=== PATIENT | female | born 1990 | race Caucasian/White ===

== ENCOUNTER 2021-01-26 20:18 | Inpatient (IN) | payer MEDICAID ==
[~2021-01-26 20:18] MED LIST: BUPIVACAINE 0.25% PF 10 ML VIAL ONE; ROPIVACAINE 0.2% 0 MG/0 ML BAG EP ONE; fentaNYL 100 MCG/2 ML VIAL ONE
[2021-01-26] MEDS ORDERED: TRANEXAMIC ACID IN NACL 1,000 MG/100 ML BAG IV PRN (20:38)
[2021-01-26] MEDS ORDERED: LIDOCAINE-MPF 1% 30 ML VIAL ID PRN (20:38)
[2021-01-26] MEDS ORDERED: METHYLERGONOVINE 0.2 MG/ML VIAL IM PRN (20:38)
[2021-01-26] MEDS ORDERED: SODIUM CHLORIDE FLUSH 0.9% 10 ML SYRINGE IVP PRN (20:38)
[2021-01-26] MEDS ORDERED: miSOPROStoL 200 MCG TABLET BC PRN (20:38)
[2021-01-26] MEDS ORDERED: OXYTOCIN 10 UNIT/ML VIAL IM PRN (20:38)
[2021-01-26] MEDS ORDERED: OXYTOCIN/SODIUM CHLORIDE 500 ML IV PRN (20:38)
[2021-01-26] MEDS ORDERED: CARBOPROST TROMETHAMINE 250 MCG/ML AMP IM PRN (20:38)
[2021-01-26 20:50] LABS: BASOPHILS % (AUTO) 0.2 %; HCT - HEMATOCRIT 37.5 % (37.0-47.0); HGB - HEMOGLOBIN 13.1 g/dL (12.0-16.0); MEAN CORPUSCULAR HEMOGLOBIN 32.7 pg (27.0-31.0); MEAN CORPUSCULAR HGB CONC 34.9 g/dL (32.0-36.0); MEAN CORPUSCULAR VOLUME 93.5 fL (81.0-99.0); MEAN PLATELET VOLUME 9.3 fL (7.9-10.8); MONOCYTES % (AUTO) 2.7 %; NEUTROPHILS % (AUTO) 93.2 %; PLT - PLATELET COUNT 303 10^3/uL (130-450); RED BLOOD COUNT 4.01 10^6/uL (4.20-5.40); RED CELL DISTRIBUTION WIDTH 12.8 % (12.0-15.0); WHITE BLOOD COUNT 22.3 x10^3/uL (4.8-10.8)
[2021-01-26] MEDS ORDERED: LIDOCAINE-MPF 1% 30 ML VIAL ONE (20:55)
[2021-01-26 20:56] LABS: ABNORMAL LYMPHS % (MANUAL) 0 %
[2021-01-26] MEDS ORDERED: LIDOCAINE 2%-EPI 1:100000 20 ML MDV ONE (20:56)
[2021-01-26] MEDS ORDERED: LACTATED RINGERS 1,000 ML IV SCH ×2 (21:00→23:00)
[2021-01-26 21:13] LABS: BAND NEUTROPHILS % (MANUAL) 3 %; LYMPHOCYTES # (MANUAL) 0.2 10^3/uL (1.5-3.5); LYMPHOCYTES % (MANUAL) 1 %; MONOCYTES # (MANUAL) 0.4 10^3/uL (0.0-1.0); NEUTROPHILS # (MANUAL) 21.6 10^3/uL (1.5-6.6); PLATELET ESTIMATE, MANUAL NORMAL (130-450,000) (NORMAL); PLATELET MORPHOLOGY NORMAL APPEARANCE (NORMAL); RBC MORPHOLOGY (MULTIPLE) NORMAL APPEARANCE (NORMAL); WBC MORPHOLOGY (MULTIPLE) NORMAL APPEARANCE (NORMAL)
[2021-01-26 21:14] LABS: DIFFERENTIAL COMMENT MANUAL DIFFERENTIAL
[2021-01-26] MEDS ORDERED: DEXTROSE 5%-LACTATED RINGERS 1,000 ML IV SCH (22:00)
[2021-01-26] MEDS ORDERED: OXYTOCIN/SODIUM CHLORIDE 500 ML IV SCH (22:00)
[2021-01-26] MEDS ORDERED: ONDANSETRON 4 MG/2 ML VIAL IVP PRN (22:50)
[2021-01-26] MEDS ORDERED: diphenhydrAMINE 25 MG CAPSULE PO PRN (22:50)
[2021-01-26] MEDS ORDERED: WITCH HAZEL/GLYCERIN 1 PAD TOP PRN (22:50)
[2021-01-26] MEDS ORDERED: oxyCODONE 5 MG TABLET PO PRN (22:50)
[2021-01-26] MEDS: ACETAMINOPHEN 500 MG TABLET PO SCH (23:14)
--- NOTE | 2021-01-26 23:23 | DELIVERY NOTE ---
Delivery Note - Labor Labor: positive: Spontaneous - Delivery Method Delivery Method: positive: Vacuum assist - Presentation Presentation: positive: Vertex, Compound (LEFT HAND), OA - occiput anterior - Nuchal Cord Nuchal Cord: positive: None - Anesthetic Anesthetic Type: Anesthetic: positive: Lidocaine - 1% plain Volume: positive: Other (30 ml) - Amniotic Fluid Description Amniotic Fluid Description: positive: Light meconium - Vacuum Use Indication for Vacuum Use: positive: Shortening of 2nd stage for maternal benefit Type of Vacuum Cup: positive: Cup: Leon Type, Cup: Rigid Number of pop-offs: 0 - Episiotomy Type Episiotomy Type: positive: None - Laceration Laceration: positive: 2nd degree, Labial (right anterior Lefl posterior), Perineal, Vaginal (right) - Suture Suture Type: positive: Vicryl Suture Size: positive: 3-0 - Delivery Outcome Delivery Outcome: positive: Livebirth - : positive: Placed in direct skin contact with mother, Bulb syringe, Stimulated sex: positive: Female - Cord Cord: positive: 3 vessels - Placenta Placenta: positive: Intact - Estimated Blood Loss Estimated Blood Loss (in cc): 450 - Post Delivery Events Post Delivery Events: positive: No post delivery events - Delivery Comments (Free Text/Narrative) Delivery Comments (Free Text/Narrative): Pt presented C/C/+2-3Pt had reached complete at 1600 While at home. Because of maternal exhaustion She was transferred. Reviewed options with the Pt and spouse decided to continue with pushing. A vacuum was placed and pulled with 2 contractions and delivered the head and body at 2200. nose and mouth suctioned and the vigorous baby was placed on the maternal abdomen. Cord clamped following sesation of pulsation. At time of delivery the left hand was compound. Placenta followed soon after and was noted to be complete. She had for lacerations. left vaginal, right anterior labial, left posterior labial and a second degree perioneal. All were repaired with 3-0 vicril. EBL 450 ml.
--- NOTE | 2021-01-26 23:49 | HISTORY & PHYSICAL EXAMINATION ---
DATE OF SERVICE: 01/26/2021 Physician: Dre Azul MD IDENTIFICATION: Patient is a 31-year-old, G1, P0 female whose EDC was determined to be 02/01/2021 by LMP. This makes her 39 weeks and 1 day. CHIEF COMPLAINT: Maternal exhaustion. HISTORY OF PRESENT ILLNESS: Patient this morning started with labor. She reached complete at roughly 4 o'clock. She had her membranes ruptured at 2 o'clock. She had difficulty with urges to push and was having maternal exhaustion. I received a phone call from Doris Ralph [facility], at roughly 1929 hours, stating that she had been complete and that she was unable to deliver vaginally. For this reason, she was transferred to our hospital here. She arrived here at roughly 2013 hours. She at that point was examined, and her cervix was noted to be complete and she was roughly +2 to +3. She had infrequent contractions at that time and was not pushing effectively. OB HISTORY: The patient started her OB care at 14 weeks and 5 days. She was seen by both Mely Leone, as well as Doris Ralph throughout her . This appeared to be unremarkable, with the exception that she did not receive a 50 gram Glucola but had DEXA sticks, she states were less than 90, and her random blood sugar was 108. She also received a hemoglobin A1c, which was noted to be 5.2. Additionally, she had a CBC that showed her blood type to be A positive. She was noted to be rubella immune. Her antibody screen was negative. She tested negative for hepatitis B, GC, chlamydia. She does have a history of having had both oral, as well as genital herpes; last outbreak was in 2013. Her OB course had an ultrasound at 20 weeks, which showed an who was suspected to be 20th percentile. PAST MEDICAL HISTORY: None. SURGICAL HISTORY: None. ALLERGIES: NONE KNOWN. CURRENT MEDICATIONS: vitamins. HABITS: The patient denies use of alcohol, tobacco, or street or addictive drugs. SOCIAL HISTORY: The patient is currently and lives with spouse. PHYSICAL EXAM GENERAL: Well-developed, well-nourished white female with intermittent contractions, which appear to be painful. HEENT: Pupils equal, round. Extraocular muscles are intact. Thyroid is not palpably enlarged. HEART: Regular rate and rhythm without murmurs. LUNGS: Lung sullivan are clear without rales or wheezes. ABDOMEN: Gravid, nontender. PELVIC: Examination shows a cervix to be completely dilated, completely effaced, and the to be stationed at +2 to +3. The infant was felt to be occiput anterior. IMPRESSION: A 31-year-old primigravida at 39 weeks and 1 day with maternal exhaustion. PLAN: Patient being admitted, and at which time discussed the options with the patient. These ranged from Pitocin, vacuum, forceps, as well as . The importance of having both a healthy mother and baby were emphasized at this time. Because of the infrequency of contractions, Pitocin was initiated at roughly 2 units. TD: 01/26/2021 23:47 betsy OWENS
[2021-01-27] MEDS: IBUPROFEN 600 MG TABLET PO SCH ×4 (00:32→18:28)
[2021-01-27] MEDS ORDERED: SODIUM CHLORIDE FLUSH 0.9% 10 ML SYRINGE IVP SCH (01:00)
[2021-01-27 05:27] LABS: BASOPHILS % (AUTO) 0.1 %; HCT - HEMATOCRIT 33.6 % (37.0-47.0); HGB - HEMOGLOBIN 11.7 g/dL (12.0-16.0); LYMPHOCYTES # (AUTO) 1.3 10^3/uL (1.5-3.5); LYMPHOCYTES % (AUTO) 6.4 %; MEAN CORPUSCULAR HEMOGLOBIN 33.3 pg (27.0-31.0); MEAN CORPUSCULAR HGB CONC 34.8 g/dL (32.0-36.0); MEAN CORPUSCULAR VOLUME 95.7 fL (81.0-99.0); MEAN PLATELET VOLUME 9.4 fL (7.9-10.8); MONOCYTES # (AUTO) 1.4 10^3/uL (0.0-1.0); MONOCYTES % (AUTO) 6.8 %; NEUTROPHILS # (AUTO) 17.2 10^3/uL (1.5-6.6); NEUTROPHILS % (AUTO) 85.9 %; PLT - PLATELET COUNT 281 10^3/uL (130-450); RED BLOOD COUNT 3.51 10^6/uL (4.20-5.40); RED CELL DISTRIBUTION WIDTH 12.9 % (12.0-15.0)
[2021-01-27 05:45] LABS: PLATELET ESTIMATE, MANUAL NORMAL (130-450,000) (NORMAL); PLATELET MORPHOLOGY NORMAL APPEARANCE (NORMAL); RBC MORPHOLOGY (MULTIPLE) NORMAL APPEARANCE (NORMAL); WBC MORPHOLOGY (MULTIPLE) NORMAL APPEARANCE (NORMAL)
[2021-01-27] MEDS: ACETAMINOPHEN 500 MG TABLET PO SCH ×2 (08:10→16:14)
[2021-01-27] MEDS: HYDROCORTISONE 1% CREAM 28 GM TUBE TOP SCH (08:31)
[2021-01-28] MEDS: IBUPROFEN 600 MG TABLET PO SCH ×2 (01:42→08:30)
[2021-01-28] MEDS: ACETAMINOPHEN 500 MG TABLET PO SCH ×2 (01:43→10:07)
[2021-01-28] MEDS: HYDROCORTISONE 1% CREAM 28 GM TUBE TOP SCH ×2 (07:23→09:31)
[2021-01-28 08:28] VITALS: BP 110/67
[2021-01-28 09:00] LABS: BASOPHILS % (AUTO) 0.3 %; EOSINOPHILS % (AUTO) 0.3 %; HCT - HEMATOCRIT 36.3 % (37.0-47.0); HGB - HEMOGLOBIN 12.1 g/dL (12.0-16.0); LYMPHOCYTES # (AUTO) 1.7 10^3/uL (1.5-3.5); LYMPHOCYTES % (AUTO) 14.1 %; MEAN CORPUSCULAR HEMOGLOBIN 32.7 pg (27.0-31.0); MEAN CORPUSCULAR HGB CONC 33.3 g/dL (32.0-36.0); MEAN CORPUSCULAR VOLUME 98.1 fL (81.0-99.0); MEAN PLATELET VOLUME 9.3 fL (7.9-10.8); MONOCYTES # (AUTO) 0.6 10^3/uL (0.0-1.0); MONOCYTES % (AUTO) 4.8 %; NEUTROPHILS # (AUTO) 9.4 10^3/uL (1.5-6.6); NEUTROPHILS % (AUTO) 79.5 %; PLT - PLATELET COUNT 271 10^3/uL (130-450); RED CELL DISTRIBUTION WIDTH 13.5 % (12.0-15.0); WHITE BLOOD COUNT 11.8 x10^3/uL (4.8-10.8)
--- NOTE | 2021-01-28 09:10 | PROVIDER PROGRESS NOTE ---
Subjective - Prog Note Date Prog Note Date: 01/28/21 Prog Note Time: 09:08 - Subjective Pt reports feeling: Improved (Pain 10/19. breast milk not in yet. Pt desires to go home.) Objective - Vital Signs/Intake & Output Reviewed Vital Signs: Yes Vital Signs: Vital Signs x48h Temp Pulse Resp BP Pulse Ox 01/28/21 08:26 36.8 C 64 18 110/67 99 01/28/21 02:07 36.5 C 65 18 113/69 Intake & Output: Intake & Output 01/25/21 01/26/21 01/27/21 01/28/21 23:59 23:59 23:59 23:59 Intake Total 0981.293 8900 Output Total 1 1752 Balance 1022.000 -237 - Objective General Appearance: positive: No acute distress, Alert Abdomen: positive: Non-tender, No distention, Mass (U-2) Extremities: negative: Calf tenderness, Mamadou's sign/cords - Lab Results Fish Bones: 01/28/21 08:50 Other Labs: Lab Results x24hrs 01/28/21 01/27/21 Range/Units 08:50 05:15 WBC 11.8 H (4.8-10.8) x10^3/uL RBC 3.70 L (4.20-5.40) 10^6/uL Hgb 12.1 (12.0-16.0) g/dL Hct 36.3 L (37.0-47.0) % MCV 98.1 (81.0-99.0) fL MCH 32.7 H (27.0-31.0) pg MCHC 33.3 (32.0-36.0) g/dL RDW 13.5 (12.0-15.0) % Plt Count 271 (130-450) 10^3/uL MPV 9.3 (7.9-10.8) fL Neut # (Auto) 9.4 H (1.5-6.6) 10^3/uL Lymph # (Auto) 1.7 (1.5-3.5) 10^3/uL [place] # (Auto) 0.6 (0.0-1.0) 10^3/uL Eos # (Auto) 0.0 (0.0-0.7) 10^3/uL Baso # (Auto) 0.0 (0.0-0.1) 10^3/uL Absolute Nucleated RBC 0.00 x10^3/uL Nucleated RBC % 0.0 /100WBC Blood Type Recheck A POSITIVE Assessment/Plan - Problem List (1) Vacuum-assisted vaginal delivery Impression: Pt is doing well. Using tucks. Desires to go home. Discharge Meds Tylenol Home supply Motrin Home supply Room in
--- NOTE | 2021-01-28 09:16 | Discharge Plan ---
Discharge Plan Problem Reviewed?: Yes Disposition: Home, Self Care Condition: Good Diet: Regular Activity Restrictions: Pelvic rest Shower Restrictions: No Driving Restrictions: No Weight Bearing: Full Weight No Smoking: If you smoke, Please STOP! Call for help.
[2021-01-28] MEDS: DOCUSATE SODIUM 100 MG CAPSULE PO SCH ×2 (09:32→09:33)
[2021-01-28] MEDS: SIMETHICONE CHEW 80 MG TABLET PO SCH ×2 (09:33→09:34)
--- NOTE | 2021-01-28 13:12 | Labor Flowsheet ---
Labor Flowsheet Datetime Report Generated by CPN: 01/28/2021 13:12 Datetime: 01/28/2021 01:59 VITAL SIGNS NBP Sys/Cassandra/Mean (mmHg): 113 : 69 : 78 Pulse: 65 Datetime: 01/27/2021 20:59 SpO2 (%): 99 Datetime: 01/27/2021 00:57 Membranes Ruptured Date/Time: 01/26/2021 14:05 Membranes Rupture Method: Artificial Amniotic Fluid Color: Light Meconium Amniotic Fluid Amount: Small Amniotic Fluid Odor: Normal Datetime: 01/27/2021 00:30 Pain Relief Measures: Pain Medication Given Datetime: 01/27/2021 00:15 Respirations: 18 PAIN Pain Scale: 3 Pain Presence: Intermittent Pain Type: Cramping Datetime: 01/26/2021 23:30 Pain Location: Perineum Datetime: 01/26/2021 22:45 Stage of : Recovery Datetime: 01/26/2021 22:44 PATIENT CARE Hygiene: Mayra Care; Underpad Changed; Peripad Changed Datetime: 01/26/2021 22:01 MEDICATIONS Pitocin (milliunits): Increased to @ 999 Medication Comments: verbal order Datetime: 01/26/2021 22:00 UTERINE ACTIVITY Monitor Mode: Palpation Frequency (min): 2-5 Quality: Strong Duration (sec): 40-80 Pattern: Normal: <= 5 Contractions in 10 Minutes Resting Tone (Palpate): Relaxed ASSESSMENT A Monitor Mode: Telemetry FHR Baseline Changes: No Baseline Change Variability: Moderate 6-25 bpm Accelerations: 15X15 Decelerations: None Category: Category I Datetime: 01/26/2021 21:56 Pushing Progress: Presenting Part Visible; with Pushing Datetime: 01/26/2021 21:54 Vacuum: Off Datetime: 01/26/2021 21:45 FHR Baseline Rate : 125 Station Vacuum/Forceps Applied: +2 Datetime: 01/26/2021 21:42 Stage 2 Comments: line rider Beumer at bs Datetime: 01/26/2021 21:30 Pitocin Checklist: At Least 1 Acceleration of 15 bpm x 15 Seconds in 30 Minutes or Adequate Variabi lity; No More than 1 Late Deceleration Occurred in Past 30 Minutes; No More than 2 Variable Decelerat ions > 60 Seconds in Duration and decreasing >60 bpm in 30 minutes; No More than 5 Uterine Contractio ns in 10 Minutes for any 20 Minute Interval; Uterus Palpates Soft between Contractions Datetime: 01/26/2021 21:25 Pushing Position: Pushing Left Side Datetime: 01/26/2021 21:16 STAGE 2 Pushing: Coached on Pushing; No Urge to Push Datetime: 01/26/2021 21:14 Monitor Interventions for UA: [place] Adjusted Datetime: 01/26/2021 21:09 TEACHING Instructional Method: Verbal; Patient Instructed; Verbalized Understanding Labor/Induction: Pushing Methods COMMUNICATION Communication: Provider at Bedside Datetime: 01/26/2021 21:07 Monitor Interventions for FHR: Ultrasound Adjusted Datetime: 01/26/2021 21:06 Comments: RN at bs, tracing maternal HR I/O Interventions: Up to BR Datetime: 01/26/2021 21:02 Plan of Care: Plan of Care Discussed; Vaginal Delivery Unit Routine: Arthur to Room; Call Leon; Bed; Phone/Cell Phone Use; Photography; Unit Personnel; Ridley ndwashing; Monitoring; IV Pumps; Safety/Fall Risk Prevention Datetime: 01/26/2021 20:58 Pain Coping: Breathing Through Contractions; Declines Medication or Epidural Datetime: 01/26/2021 20:55 Communication Comments: Dr. Gould called Datetime: 01/26/2021 20:54 VAGINAL EXAM Dilatation (cm): 10.0 Effacement (%): 100 Station: 2 Exam by: Dr. Azul
== END 2021-01-28 12:55 | disposition home or self-care (01) | DRG 806 ==
LOC: WFO 20:18 → FBP 20:23 → WFO 20:35 → FBP 20:36
PROVIDERS: ADMIT Obstetrics & Gynecology; ATTEND Obstetrics & Gynecology
PROC: 10D07Z6 Extraction of Products of Conception, Vacuum, Via Natural or Artificial Opening (ICD-10-PCS; principal; 2021-01-26)
PROC: 0KQM0ZZ Repair Perineum Muscle, Open Approach (ICD-10-PCS; 2021-01-26)
DX: O75.81 Maternal exhaustion complicating labor and delivery (principal); O98.32 Other infections with a predominantly sexual mode of transmission complicating childbirth; Z37.0 Single live birth; O70.1 Second degree perineal laceration during delivery; O32.6XX0 Maternal care for compound presentation, not applicable or unspecified; Z3A.39 39 weeks gestation of pregnancy; A60.09 Herpesviral infection of other urogenital tract; O77.0 Labor and delivery complicated by meconium in amniotic fluid; Z20.822 Contact with and (suspected) exposure to COVID-19
CPT/HCPCS: 36415; 85025; 86850; 86900; 86901; 87635; A9270; J7120